=== PATIENT | female | born 1990 | race Caucasian/White ===

== ENCOUNTER 2021-05-12 14:26 | Inpatient (IN) ==
[2021-05-12] MEDS ORDERED: SODIUM CHLORIDE 0.9% 1000ML 1,000 ML IV ONE (15:10)
--- NOTE | 2021-05-12 15:15 | Emergency Department Note ---
Impression & Plan Suicide attempt by multiple drug overdose ED Provider Note Name: JEREMÍAS OSWALD Age: 31 Sex: F Arrives Via: Ambulance Informant: Patient, EMS, Nursing, parents ED Provider: Marcello Centeno MD Chief Complaint: overdose Impression: Suicide attempt by multiple drug overdose Medical Decision Makin yr old female with history of a pituatary adenoma though per her no reported mental health issues previously arrives with worsening suicidal ideation and depression. Not willing to discuss reasons for this though admits 2 suicide attempts with benzos/narcotics in last 24 hours. She is stable, awake, and appears well other than a bit sleepy initially. She has negative Etoh/Tyl/salicilates. EKG OK, No indication for CT head at this time given no neuro deficits nor headache. She has otherwise normal labs. On library monitor for several hours without issues. Repeat tylenol confirms negative. She requires hospitalization and is agreeable to voluntary admission. Evaluated by [facility] Dim[facility] and accepted to their facility for further management in stable condition. Given evening dose of her bromocriptine. Triage/Nursing Notes reviewed by Me Differentials:Mood disorder, infection, hypoglycemia, electrolyte abnorm alities, cardiac sources, intracerebral event, toxicologic, trauma, neurologic, as well as other pathologies. Vital Signs: reviewed and remarkable for no significant abnormalities Interventions: saline lock, nss bolus Labs:Reviewed and remarkable for no significant abnormalities EKG:Per My Interpretation: Indication overdose: NSR 95 bpm, 475 qtc . No Ectopy. No Ischemia. no previous for comparison Cardiac/Tele Monitoring: Cardiac Monitoring: An Order was placed for continuous cardiac monitoring. The monitor shows a rate of 70 with a normal sinus rhythm. Consults:3 Wing - Accepts for voluntary psychiatric admission Plan: Disposition:Hospitalization. Condition: Good History of Present Illness:31 yr old female arrives for evaluation of medication overdose. Patient notes worsening depression recently. Yesterday she took an overdose of her Valium/Ativan that was left over from previous rx. Today attempted to kill self with overdose of dilaudid and valium/ativan. She notes she currently feels sleepy. Apparently father found her and called 911. No interventions [employer]. She notes taking medications at 1:30pm on 05/12/21 today. Denies chest pain, sob, abdominal pain, headache, nor other symptoms. Admits long history of depression/bipolar with previous treatment, but nothing recently. No previous suicide attempts nor hospitalizations. She notes many reasons are for attempting her suicide the last 2 days. Denies taking any Tylenol/Salicylates, nor OTC medications today. ROS: See above HPI for pertinent positives & negatives. A total of 10 systems reviewed and were otherwise negative. 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 EYES: No scleral icterus, unremarkable pupils. ENT: Mucous membranes moist, no nasal congestion. NECK: No masses appreciated, nomeningismus, trachea is midline. RESPIRATORY: No dyspnea. Clear to auscultation and equal bilaterally. No wheeze, no rhonchi. CARDIOVASCULAR: Regular rate and rhythm.No murmurs, rubs, gallops appreciated. GASTROINTESTINAL: Abdomen soft, non-tender, no peritonitis.Bowel sounds positive.No masses appreciated. BACK: No midline tenderness, no CVA tenderness EXTREMITIES: Normal motion all extremities, no cyanosis, no edema. NEUROLOGIC: Alert and oriented, no acute motor or sensory deficits, no focal wea kness, cranial nerves grossly intact. SKIN: No rash, no jaundice, no diaphoresis. PSYCH: Depressed, sad, admits suicidal thoughts GCS: 15 ED Course: Times/Reassessments: Stable throughout, minimal somnolence, medically clear for psych admission Marcello Centeno MD Past Med/Surg History Social History Smoking Status: Former smoker Beliefs That Will Affect Care: None Feels Safe at Home: Yes Assistive Devices: None Allergies Allergies Allergy/AdvReac Type Severity Reaction Status Date / Time amoxicillin Allergy Intermediate Hives Verified 05/12/21 15:26 Sulfa (Sulfonamide Allergy Intermediate Hives Verified 05/12/21 15:26 Antibiotics) Home Meds Home Medications Medication Instructions Recorded Confirmed bromocriptine 2.5 mg tablet 2.5 mg PO HS 05/12/21 05/12/21 lamotrigine 100 mg tablet 200 mg PO HS 05/12/21 05/12/21 Results & Data (ED) Vital Signs Vital Signs - 24 hr 05/12/21 14:30 05/12/21 14:34 05/12/21 15:00 Temperature 37.1 C Temperature Source Oral Pulse Rate 92 H 104 H 88 Pulse Rate [Apical] 92 H Pulse Rate from SpO2 Sensor 104 H 88 Respiratory Rate 18 13 19 Respiratory Effort / Characteristics Non-Labored Spontaneous Respiratory Depth Normal Respiratory Pattern Regular Blood Pressure 125/77 125/77 110/66 Blood Pressure [Right Arm] 125/77 Blood Pressure Mean 93 93 80 Blood Pressure Mean [Right Arm] 93 Pulse Oximetry 97 98 97 Oxygen Delivery Method Room Air Sepsis Recent Fever Within 48 Hours No Sepsis New/Unexplained Change in Mental Status No Sepsis Action Taken by Nursing No Action Required 05/12/21 15:30 05/12/21 16:00 05/12/21 16:30 Temperature Temperature Source Pulse Rate 78 61 75 Pulse Rate [Apical] Pulse Rate from SpO2 Sensor 74 63 74 Respiratory Rate 16 14 15 Respiratory Effort / Characteristics Respiratory Depth Respiratory Pattern Blood Pressure 125/80 101/64 99/57 L Blood Pressure [Right Arm] Blood Pressure Mean 95 76 71 Blood Pressure Mean [Right Arm] Pulse Oximetry 96 96 97 Oxygen Delivery Method Room Air Room Air Room Air Sepsis Recent Fever Within 48 Hours Sepsis New/Unexplained Change in Mental Status Sepsis Action Taken by Nursing 05/12/21 17:00 05/12/21 17:30 05/12/21 18:00 Temperature Temperature Source Pulse Rate 73 87 91 H Pulse Rate [Apical] Pulse Rate from SpO2 Sensor 75 88 89 Respiratory Rate 17 22 17 Respiratory Effort / Characteristics Respiratory Depth Respiratory Pattern Blood Pressure 99/55 L 108/73 114/77 Blood Pressure [Right Arm] Blood Pressure Mean 69 84 89 Blood Pressure Mean [Right Arm] Pulse Oximetry 95 97 97 Oxygen Delivery Method Room Air Room Air Room Air Sepsis Recent Fever Within 48 Hours Sepsis New/Unexplained Change in Mental Status Sepsis Action Taken by Nursing 05/12/21 18:30 05/12/21 19:00 05/12/21 19:30 Temperature Temperature Source Pulse Rate 67 68 60 Pulse Rate [Apical] Pulse Rate from SpO2 Sensor 72 62 Respiratory Rate 20 12 13 Respiratory Effort / Characteristics Respiratory Depth Respiratory Pattern Blood Pressure 121/75 98/65 L 111/65 Blood Pressure [Right Arm] Blood Pressure Mean 90 76 80 Blood Pressure Mean [Right Arm] Pulse Oximetry 98 100 100 Oxygen Delivery Method Room Air Room Air Room Air Sepsis Recent Fever Within 48 Hours Sepsis New/Unexplained Change in Mental Status Sepsis Action Taken by Nursing 05/12/21 20:00 05/12/21 20:30 05/12/21 21:00 Temperature Temperature Source Pulse Rate 67 71 79 Pulse Rate [Apical] Pulse Rate from SpO2 Sensor 69 70 78 Respiratory Rate 18 16 17 Respiratory Effort / Characteristics Respiratory Depth Respiratory Pattern Blood Pressure 119/74 105/66 123/73 Blood Pressure [Right Arm] Blood Pressure Mean 89 79 89 Blood Pressure Mean [Right Arm] Pulse Oximetry 98 98 100 Oxygen Delivery Method Room Air Room Air Room Air Sepsis Recent Fever Within 48 Hours Sepsis New/Unexplained Change in Mental Status Sepsis Action Taken by Nursing Laboratory Data Result diagrams: 05/12/21 15:40 05/12/21 15:40 Lab Results 05/12/21 05/12/21 05/12/21 Range/Units 15:30 15:30 15:40 WBC 4.94 (4.8-10.8) K/uL RBC 3.97 L (4.2-5.4) M/uL Hgb 12.0 (12.0-16.0) g/dL Hct 36.6 L (37-47) % MCV 92.2 (80-100) fL MCH 30.2 (25-34) pg MCHC 32.8 (32-36) g/dL RDW Std Deviation 42.8 (36.4-46.3) fL RDW Coeff of Shukri 12.6 (11.5-14.5) % Plt Count 268 (130-400) K/uL MPV 9.9 (7.4-10.4) fL Immature Gran % (Auto) 0.0 % Neut % (Auto) 55.5 % Lymph % (Auto) 35.6 % Er[place] % (Auto) 7.7 % Eos % (Auto) 0.4 % Baso % (Auto) 0.8 % Neut # (Auto) 2.74 (1.4-6.5) K/uL Lymph # (Auto) 1.76 (1.2-3.4) K/uL [place] # (Auto) 0.38 (0.11-0.59) K/uL Eos # (Auto) 0.02 (0-0.5) K/uL Baso # (Auto) 0.04 (0-0.2) K/uL Immature Gran # (Auto) 0.00 (0.00-0.02) K/uL Sodium (136-145) mmol/L Potassium (3.5-5.1) mmol/L Chloride (98-107) mmol/L Carbon Dioxide (21-32) mmol/L Anion Gap (3-11) BUN (7-18) mg/dl Creatinine (0.6-1.2) mg/dl Est Cr Clr Drug Dosing ml/min Est GFR ( Amer) ml/min Est GFR (Non-Af Amer) ml/min BUN/Creatinine Ratio (10-20) Glucose (70-99) mg/dl Calcium (8.5-10.1) mg/dl Total Bilirubin (0.2-1) mg/dl AST (15-37) U/L ALT (12-78) U/L Alkaline Phosphatase (45-117) U/L Total Protein (6.4-8.2) gm/dl Albumin (3.4-5.0) gm/dl Globulin (2.5-4.0) gm/dl Albumin/Globulin Ratio (0.9-2) TSH (0.300-4.500) uIu/ml Urine Color Urine Appearance (Clear) Urine pH (4.5-7.5) Ur Specific Lawrence (1.000-1.030) Urine Protein (Negative) Urine Glucose (UA) (Negative) Urine Ketones (Negative) Urine Blood (Negative) Urine Nitrite (Negative) Urine Bilirubin (Negative) Urine Urobilinogen (Negative) Ur Leukocyte Esterase (Negative) Urine WBC (Auto) (0-5) /hpf Urine RBC (Auto) (0-4) /hpf U Hyaline Cast (Auto) (0-5) /lpf U Epithel Cells (Auto) (0-5) /lpf Urine Bacteria (Auto) (Negative) Urine Test (Negative) Salicylates (2.8-20) mg/dl Urine Opiates Screen (Neg) Ur Methadone, Qual (Neg) Acetaminophen (10-30) ug/ml Urine Barbiturates (Neg) Ur Phencyclidine (PCP) (Neg) U Amphetamin/Meth Scrn (Neg) MDMA (Ecstasy) Screen (Neg) U Benzodiazepines Scrn (Neg) Ur Cocaine Metabolite (Neg) U Marijuana (THC) Screen (Neg) Ethyl Alcohol mg/dL (0-3) mg/dl COVID-19 Eval Order Covid19 at [facility] SARS-CoV-2 (PCR) NEGATIVE (Negative) 05/12/21 05/12/21 05/12/21 Range/Units 15:40 15:40 15:40 WBC (4.8-10.8) K/uL RBC (4.2-5.4) M/uL Hgb (12.0-16.0) g/dL Hct (37-47) % MCV (80-100) fL MCH (25-34) pg MCHC (32-36) g/dL RDW Std Deviation (36.4-46.3) fL RDW Coeff of Shukri (11.5-14.5) % Plt Count (130-400) K/uL MPV (7.4-10.4) fL Immature Gran % (Auto) % Neut % (Auto) % Lymph % (Auto) % [place] % (Auto) % Eos % (Auto) % Baso % (Auto) % Neut # (Auto) (1.4-6.5) K/uL Lymph # (Auto) (1.2-3.4) K/uL [place] # (Auto) (0.11-0.59) K/uL Eos # (Auto) (0-0.5) K/uL Baso # (Auto) (0-0.2) K/uL Immature Gran # (Auto) (0.00-0.02) K/uL Sodium 141 (136-145) mmol/L Potassium 4.3 (3.5-5.1) mmol/L Chloride 113 H (98-107) mmol/L Carbon Dioxide 24 (21-32) mmol/L Anion Gap 4.0 (3-11) BUN 11 (7-18) mg/dl Creatinine 0.73 (0.6-1.2) mg/dl Est Cr Clr Drug Dosing 107.6 ml/min Est GFR ( Amer) 126.3 ml/min Est GFR (Non-Af Amer) 109.0 ml/min BUN/Creatinine Ratio 14.8 (10-20) Glucose 80 (70-99) mg/dl Calcium 8.0 L (8.5-10.1) mg/dl Total Bilirubin 0.7 (0.2-1) mg/dl AST 12 L (15-37) U/L ALT 21 (12-78) U/L Alkaline Phosphatase 31 L (45-117) U/L Total Protein 6.6 (6.4-8.2) gm/dl Albumin 3.7 (3.4-5.0) gm/dl Globulin 2.9 (2.5-4.0) gm/dl Albumin/Globulin Ratio 1.3 (0.9-2) TSH 4.300 (0.300-4.500) uIu/ml Urine Color Urine Appearance (Clear) Urine pH (4.5-7.5) Ur Specific Lawrence (1.000-1.030) Urine Protein (Negative) Urine Glucose (UA) (Negative) Urine Ketones (Negative) Urine Blood (Negative) Urine Nitrite (Negative) Urine Bilirubin (Negative) Urine Urobilinogen (Negative) Ur Leukocyte Esterase (Negative) Urine WBC (Auto) (0-5) /hpf Urine RBC (Auto) (0-4) /hpf U Hyaline Cast (Auto) (0-5) /lpf U Epithel Cells (Auto) (0-5) /lpf Urine Bacteria (Auto) (Negative) Urine Test (Negative) Salicylates < 1.7 L (2.8-20) mg/dl Urine Opiates Screen (Neg) Ur Methadone, Qual (Neg) Acetaminophen < 2 L (10-30) ug/ml Urine Barbiturates (Neg) Ur Phencyclidine (PCP) (Neg) U Amphetamin/Meth Scrn (Neg) MDMA (Ecstasy) Screen (Neg) U Benzodiazepines Scrn (Neg) Ur Cocaine Metabolite (Neg) U Marijuana (THC) Screen (Neg) Ethyl Alcohol mg/dL < 3.0 (0-3) mg/dl COVID-19 Eval Order SARS-CoV-2 (PCR) (Negative) 05/12/21 05/12/21 05/12/21 Range/Units 17:37 18:26 18:26 WBC (4.8-10.8) K/uL RBC (4.2-5.4) M/uL Hgb (12.0-16.0) g/dL Hct (37-47) % MCV (80-100) fL MCH (25-34) pg MCHC (32-36) g/dL RDW Std Deviation (36.4-46.3) fL RDW Coeff of Shukri (11.5-14.5) % Plt Count (130-400) K/uL MPV (7.4-10.4) fL Immature Gran % (Auto) % Neut % (Auto) % Lymph % (Auto) % [place] % (Auto) % Eos % (Auto) % Baso % (Auto) % Neut # (Auto) (1.4-6.5) K/uL Lymph # (Auto) (1.2-3.4) K/uL [place] # (Auto) (0.11-0.59) K/uL Eos # (Auto) (0-0.5) K/uL Baso # (Auto) (0-0.2) K/uL Immature Gran # (Auto) (0.00-0.02) K/uL Sodium (136-145) mmol/L Potassium (3.5-5.1) mmol/L Chloride (98-107) mmol/L Carbon Dioxide (21-32) mmol/L Anion Gap (3-11) BUN (7-18) mg/dl Creatinine (0.6-1.2) mg/dl Est Cr Clr Drug Dosing ml/min Est GFR ( Amer) ml/min Est GFR (Non-Af Amer) ml/min BUN/Creatinine Ratio (10-20) Glucose (70-99) mg/dl Calcium (8.5-10.1) mg/dl Total Bilirubin (0.2-1) mg/dl AST (15-37) U/L ALT (12-78) U/L Alkaline Phosphatase (45-117) U/L Total Protein (6.4-8.2) gm/dl Albumin (3.4-5.0) gm/dl Globulin (2.5-4.0) gm/dl Albumin/Globulin Ratio (0.9-2) TSH (0.300-4.500) uIu/ml Urine Color Yellow Urine Appearance Clear (Clear) Urine pH 6.5 (4.5-7.5) Ur Specific Lawrence 1.009 (1.000-1.030) Urine Protein Negative (Negative) Urine Glucose (UA) Negative (Negative) Urine Ketones 1+ H (Negative) Urine Blood Trace H (Negative) Urine Nitrite Negative (Negative) Urine Bilirubin Negative (Negative) Urine Urobilinogen Negative (Negative) Ur Leukocyte Esterase Negative (Negative) Urine WBC (Auto) 1-5 (0-5) /hpf Urine RBC (Auto) 0-4 (0-4) /hpf U Hyaline Cast (Auto) 0 (0-5) /lpf U Epithel Cells (Auto) >30 H (0-5) /lpf Urine Bacteria (Auto) Negative (Negative) Urine Test Negative (Negative) Salicylates (2.8-20) mg/dl Urine Opiates Screen (Neg) Ur Methadone, Qual (Neg) Acetaminophen < 2 L (10-30) ug/ml Urine Barbiturates (Neg) Ur Phencyclidine (PCP) (Neg) U Amphetamin/Meth Scrn (Neg) MDMA (Ecstasy) Screen (Neg) U Benzodiazepines Scrn (Neg) Ur Cocaine Metabolite (Neg) U Marijuana (THC) Screen (Neg) Ethyl Alcohol mg/dL (0-3) mg/dl COVID-19 Eval Order SARS-CoV-2 (PCR) (Negative) 05/12/21 Range/Units 18:26 WBC (4.8-10.8) K/uL RBC (4.2-5.4) M/uL Hgb (12.0-16.0) g/dL Hct (37-47) % MCV (80-100) fL MCH (25-34) pg MCHC (32-36) g/dL RDW Std Deviation (36.4-46.3) fL RDW Coeff of Shukri (11.5-14.5) % Plt Count (130-400) K/uL MPV (7.4-10.4) fL Immature Gran % (Auto) % Neut % (Auto) % Lymph % (Auto) % [place] % (Auto) % Eos % (Auto) % Baso % (Auto) % Neut # (Auto) (1.4-6.5) K/uL Lymph # (Auto) (1.2-3.4) K/uL [place] # (Auto) (0.11-0.59) K/uL Eos # (Auto) (0-0.5) K/uL Baso # (Auto) (0-0.2) K/uL Immature Gran # (Auto) (0.00-0.02) K/uL Sodium (136-145) mmol/L Potassium (3.5-5.1) mmol/L Chloride (98-107) mmol/L Carbon Dioxide (21-32) mmol/L Anion Gap (3-11) BUN (7-18) mg/dl Creatinine (0.6-1.2) mg/dl Est Cr Clr Drug Dosing ml/min Est GFR ( Amer) ml/min Est GFR (Non-Af Amer) ml/min BUN/Creatinine Ratio (10-20) Glucose (70-99) mg/dl Calcium (8.5-10.1) mg/dl Total Bilirubin (0.2-1) mg/dl AST (15-37) U/L ALT (12-78) U/L Alkaline Phosphatase (45-117) U/L Total Protein (6.4-8.2) gm/dl Albumin (3.4-5.0) gm/dl Globulin (2.5-4.0) gm/dl Albumin/Globulin Ratio (0.9-2) TSH (0.300-4.500) uIu/ml Urine Color Urine Appearance (Clear) Urine pH (4.5-7.5) Ur Specific Lawrence (1.000-1.030) Urine Protein (Negative) Urine Glucose (UA) (Negative) Urine Ketones (Negative) Urine Blood (Negative) Urine Nitrite (Negative) Urine Bilirubin (Negative) Urine Urobilinogen (Negative) Ur Leukocyte Esterase (Negative) Urine WBC (Auto) (0-5) /hpf Urine RBC (Auto) (0-4) /hpf U Hyaline Cast (Auto) (0-5) /lpf U Epithel Cells (Auto) (0-5) /lpf Urine Bacteria (Auto) (Negative) Urine Test (Negative) Salicylates (2.8-20) mg/dl Urine Opiates Screen Pos H (Neg) Ur Methadone, Qual Neg (Neg) Acetaminophen (10-30) ug/ml Urine Barbiturates Neg (Neg) Ur Phencyclidine (PCP) Neg (Neg) U Amphetamin/Meth Scrn Neg (Neg) MDMA (Ecstasy) Screen Neg (Neg) U Benzodiazepines Scrn Pos H (Neg) Ur Cocaine Metabolite Neg (Neg) U Marijuana (THC) Screen Neg (Neg) Ethyl Alcohol mg/dL (0-3) mg/dl COVID-19 Eval Order SARS-CoV-2 (PCR) (Negative) Administered Medications Discontinued Medications Bromocriptine Mesylate (Bromocriptine Mesylate 2.5 Mg Tab) 2.5 mg PO BID HARJEET Stop: 06/11/21 21:29 Last Admin: 05/12/21 21:59 Dose: 2.5 mg Documented by: [id number] Sodium Chloride (Nss 1000ml) 1,000 mls @ 999 mls/hr IV .[id number] ONE Stop: 05/12/21 16:10 Last Infusion: 05/12/21 16:26 Dose: 0 mls/hr Documented by: [id number] Admin: 05/12/21 15:26 Dose: 999 mls/hr Documented by: [id number] Discharge Plan Visit Data Chief Complaint: Overdose (Intentional) Stated Complaint: OVERDOSE ED Provider: Marcello Centeno Discharge Problem: Suicide attempt by multiple drug overdose Patient Disposition: Admitted As Inpatient Discharge Instructions Interventions: ED Discharge Assessment Last Done: 05/12/21 22:19 Discharge Problem: Suicide attempt by multiple drug overdose Qualifiers: Encounter type: initial encounter Qualified Code(s): T50.912A - Poisoning by multiple unspecified drugs, medicaments and biological substances, intentional self-harm, initial encounter
[2021-05-12 15:52] LABS: Basophils # (auto) 0.04 K/uL (0-0.2); Basophils % (auto) 0.8 %; Eosinophils # (auto) 0.02 K/uL (0-0.5); Eosinophils % (auto) 0.4 %; Hematocrit (blood only) 36.6 % (37-47); Lymphocytes # (auto) 1.76 K/uL (1.2-3.4); Lymphocytes % (auto) 35.6 %; Mean Corpuscular Hemoglobin 30.2 pg (25-34); Mean Corpuscular Hgb Conc 32.8 g/dL (32-36); Mean Corpuscular Volume 92.2 fL (80-100); Mean Platelet Volume 9.9 fL (7.4-10.4); Monocytes # (auto) 0.38 K/uL (0.11-0.59); Monocytes % (auto) 7.7 %; Neutrophils # (auto) 2.74 K/uL (1.4-6.5); Neutrophils % (auto) 55.5 %; Platelet Count 268 K/uL (130-400); RDW Coefficient of Variation 12.6 % (11.5-14.5); RDW Standard Deviation 42.8 fL (36.4-46.3); Red Blood Count 3.97 M/uL (4.2-5.4); White Blood Count 4.94 K/uL (4.8-10.8)
[2021-05-12 16:10] LABS: Albumin Level 3.7 gm/dl (3.4-5.0); BUN Creatinine Ratio 14.8 (10-20); Creatinine Clr Calc Pharmacy 107.6 ml/min; Est GFR (African American) 126.3 ml/min; Potassium 4.3 mmol/L (3.5-5.1)
[2021-05-12 16:12] LABS: Acetaminophen < 2 ug/ml (10-30); Salicylate < 1.7 mg/dl (2.8-20)
[2021-05-12 16:21] LABS: Albumin Globulin Ratio 1.3 (0.9-2); Bilirubin,Total 0.7 mg/dl (0.2-1); Globulin 2.9 gm/dl (2.5-4.0); Thyroid Stimulating Hormone 4.3 uIu/ml (0.300-4.500); Total Protein 6.6 gm/dl (6.4-8.2)
[2021-05-12 18:53] LABS: Appearance Urine Clear (Clear); Bacteria Urine Automated Negative (Negative); Bilirubin Urine Negative (Negative); Blood Urine Trace (Negative); Cast Urine Automated 0 /lpf (0-5); Color Urine Yellow; Epithelial Cell Urine Auto >30 /lpf (0-5); Glucose Urine UA Negative (Negative); Ketones Urine 1+ (Negative); Leukocyte Esterase Urine Negative (Negative); Nitrite Urine Negative (Negative); Pregnancy Test, Urine Negative (Negative); Protein Urine Negative (Negative); RBC Urine Automated 0-4 /hpf (0-4); Specific Gravity Urine 1.009 (1.000-1.030); Urobilinogen Urine Negative (Negative); pH Urine 6.5 (4.5-7.5)
[2021-05-12 19:13] LABS: Amphetamines+Metham, Urine Neg (Neg); Barbiturates, Urine Neg (Neg); Benzodiazepine, Urine Pos (Neg); Cocaine, Urine Neg (Neg); MDMA (Ecstacy), Urine Neg (Neg); Methadone, Urine Neg (Neg); Opiate, Urine Pos (Neg); Phencyclidine, Urine Neg (Neg)
[2021-05-12] MEDS ORDERED: MAGNESIUM HYDROXIDE SUSP 30 ML UDC PO PRN (21:29)
[2021-05-12] MEDS ORDERED: ALUMINUM/MAGNESIUM SUSP 30 ML UDC PO PRN (21:29)
[2021-05-12] MEDS ORDERED: SODIUM CHLORIDE 0.65% NA SOLN 45 ML (OCEAN) PRN (21:29)
[2021-05-12] MEDS ORDERED: ACETAMINOPHEN 325 MG TAB PO PRN (21:29)
[2021-05-12] MEDS ORDERED: hydrOXYzine HCl 25 MG TAB PO PRN ×2 (21:29)
[2021-05-12] MEDS ORDERED: BISMUTH SUBSALICYLATE LIQD 236 ML PO PRN (21:29)
[2021-05-12] MEDS ORDERED: BROMOCRIPTINE MESYLATE 2.5 MG TAB PO SCH (21:30)
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
--- NOTE | 2021-05-13 11:25 | Electrocardiogram Report ---
Test Reason : Blood Pressure : / mmHG Vent. Rate : 095 BPM Atrial Rate : 095 BPM P-R Int : 134 ms QRS Dur : 084 ms QT Int : 378 ms P-R-T Axes : 073 077 070 degrees QTc Int : 475 ms Normal sinus rhythm Possible Left atrial enlargement Nonspecific ST abnormality Abnormal ECG No previous ECGs available Confirmed by Mejia Bartlett ([id number]) on 05/13/2021 11:25:15 AM Referred By: REFERRED SELF Confirmed By:Mejia Bartlett
[2021-05-13] MEDS: BROMOCRIPTINE MESYLATE 2.5 MG TAB PO SCH (20:24)
--- NOTE | 2021-05-14 16:15 | Psychiatric Progress Note ---
Date of Service May 14, 2021 Impression / Recommendations Impression 31 yo female with a history of recurrent depressive episodes, good inter episode functioning and brief periods of hypomania presents with vegetative symptoms of depression s/p multi drug OD. She reports hx of pituitary adenoma (stable though last MRI 5 years, she relates nl prl recently and no visual field issues). 05/14/21--improving (1) Bipolar II disorder with seasonal pattern: 05/14/21: restart Lamictal 05/13/21: The patient was admitted to the [facility] (health system mental health unit) on q15 min checks (behavioral with suicide precautions) for safety. The patient will participate in group, recreational, and milieu therapies and will be offered additional individual and family sessions as clinically appropriate. Risks/benefits/alternatives were reviewed re: retrial of Lamictal, discussion included but was not limited to risks for Douglas kearns. She desires additional time to consider. 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 Chief Complaint "the work stuff is a relief, just trying to decide how much support I want when I leave the hospital". Review of Systems Sleep Information Total Hours of Sleep: 6.5 Meal Information Percent Meal Consumed - Breakfast: 50 Percent Meal Consumed - Lunch: 75 Percent Meal Consumed - Dinner: 75 Subjective Subjective Patient was seen & assessed and interval progress reviewed with nursing and social work. No issue overnight other than light sleeper. Appears brighter in peer interactions. Was able to discuss her past med trials. Awaiting family meeting. Physical Exam Psychiatric Orientation: alert and oriented x 3 Apperance: appropriately dressed and appropriately groomed Eye Contact: good eye contact Motor Behavior: no abnormal motor movements Speech: normal rate/rhythm/volume of speech Affect: euthymic affect Mood: + depressed mood Thought Process: goal directed thought process Thought Content: reality based without delusions Suicidal Thoughts: denies suicidal thoughts Homicidal Thoughts: denies homicidal thoughts Hallucinations: no auditory hallucinations and no visual hallucinations Cognition: attention grossly intact and language grossly intact Estimated Intelligence: consistent with education level Insight: + limited insight Judgement: + limited judgement Vital Signs (Past 24 Hours) Last Vital Signs Temp 36.6 C 05/14/21 06:50 Pulse 72 05/14/21 06:50 Resp 16 05/14/21 06:50 BP 87/51 L 05/14/21 06:50 Pulse Ox 99 05/12/21 21:30 Results & Data ([facility]) Current Inpatient Medications Current Inpatient Medications: Current Inpatient Medications Acetaminophen (Acetaminophen 325 Mg Tab) 650 mg PO Q4H PRN PRN Reason: Headache or Minor Fever Stop: 06/11/21 21:28 Al Hydrox/Mg Hydrox/Simethicone (Aluminum/Magnesium Susp 30 Ml Udc) 30 ml PO Q4H PRN PRN Reason: GI Upset Stop: 06/11/21 21:28 Bismuth Subsalicylate (Bismuth Subsalicylate Liqd 236 Ml) 15 ml PO PRN PRN PRN Reason: Loose Stool Stop: 06/11/21 21:28 Bromocriptine Mesylate (Bromocriptine Mesylate 2.5 Mg Tab) 2.5 mg PO QPM HARJEET Stop: 06/12/21 20:59 Last Admin: 05/13/21 20:24 Dose: 2.5 mg Documented by: Hydroxyzine HCl (Hydroxyzine Hcl 25 Mg Tab) 50 mg PO HSZ PRN PRN Reason: Insomnia Stop: 06/11/21 21:28 Hydroxyzine HCl (Hydroxyzine Hcl 25 Mg Tab) 25 mg PO Q4H PRN PRN Reason: Anxiety Stop: 06/11/21 21:28 Magnesium Hydroxide (Magnesium Hydroxide Susp 30 Ml Udc) 30 ml PO DAILY PRN PRN Reason: Constipation Stop: 06/11/21 21:28 Sodium Chloride (Sodium Chloride 0.65% Na Soln 45 Ml ([place])) 1 - 2 sprays NA PRN PRN PRN Reason: Nasal Dryness/Congestion Stop: 06/11/21 21:28
[2021-05-14] MEDS: lamoTRIgine 25 MG TAB PO SCH (17:10)
[2021-05-14] MEDS: BROMOCRIPTINE MESYLATE 2.5 MG TAB PO SCH (21:04)
[2021-05-15] MEDS: lamoTRIgine 25 MG TAB PO SCH (08:29)
--- NOTE | 2021-05-15 09:11 | Psychiatric Progress Note ---
Date of Service May 15, 2021 Impression / Recommendations Impression 31 yo female with a history of recurrent depressive episodes, good inter episode functioning and brief periods of hypomania presents with vegetative symptoms of depression s/p multi drug OD. She reports hx of pituitary adenoma (stable though last MRI 5 years, she relates nl prl recently and no visual field issues). 05/15/21--improving (1) Bipolar II disorder with seasonal pattern: 05/15/21: continue current medication and treatment plan 05/14/21: restart Lamictal 05/13/21: The patient was admitted to the [facility] ([facility] mental health unit) on q15 min checks (behavioral with suicide precautions) for safety. The patient will participate in group, recreational, and milieu therapies and will be offered additional individual and family sessions as clinically appropriate. Risks/benefits/alternatives were reviewed re: retrial of Lamictal, discussion included but was not limited to risks for Douglas kearns. She desires additional time to consider. 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 Chief Complaint "yeah, just focussed on how this all will work, I guess I am feeling better". Review of Systems Sleep Information Total Hours of Sleep: 6.5 Sleep Comments: pt on q-15 minute checks Meal Information Percent Meal Consumed - Breakfast: 50 Percent Meal Consumed - Lunch: 75 Percent Meal Consumed - Dinner: 90 Subjective Subjective Patient was seen & assessed and interval progress reviewed with treatment team. Patient relates sleep is improving. Tolerating restart of Lamictal. Parents were supportive in family meeting. She remains focussed on hormone levels being the underlying cause of many of her symptoms and re-reviewed her medical clearance labs. Physical Exam Psychiatric Orientation: alert and oriented x 3 Apperance: appropriately dressed and appropriately groomed Eye Contact: good eye contact Motor Behavior: no abnormal motor movements Speech: normal rate/rhythm/volume of speech Affect: euthymic affect Mood: + depressed mood Thought Process: goal directed thought process Thought Content: reality based without delusions Suicidal Thoughts: denies suicidal thoughts Homicidal Thoughts: denies homicidal thoughts Hallucinations: no auditory hallucinations and no visual hallucinations Cognition: attention grossly intact and language grossly intact Estimated Intelligence: consistent with education level Insight: + fair insight Judgement: + fair judgement Vital Signs (Past 24 Hours) Last Vital Signs Temp 36.5 C 05/15/21 06:39 Pulse 74 05/15/21 06:40 Resp 16 05/15/21 06:39 BP 83/57 L 05/15/21 06:40 Pulse Ox 99 05/12/21 21:30 Results & Data ([facility]) Current Inpatient Medications Current Inpatient Medications: Current Inpatient Medications Acetaminophen (Acetaminophen 325 Mg Tab) 650 mg PO Q4H PRN PRN Reason: Headache or Minor Fever Stop: 06/11/21 21:28 Al Hydrox/Mg Hydrox/Simethicone (Aluminum/Magnesium Susp 30 Ml Udc) 30 ml PO Q4H PRN PRN Reason: GI Upset Stop: 06/11/21 21:28 Bismuth Subsalicylate (Bismuth Subsalicylate Liqd 236 Ml) 15 ml PO PRN PRN PRN Reason: Loose Stool Stop: 06/11/21 21:28 Bromocriptine Mesylate (Bromocriptine Mesylate 2.5 Mg Tab) 2.5 mg PO QPM HARJEET Stop: 06/12/21 20:59 Last Admin: 05/14/21 21:04 Dose: 2.5 mg Documented by: Hydroxyzine HCl (Hydroxyzine Hcl 25 Mg Tab) 50 mg PO HSZ PRN PRN Reason: Insomnia Stop: 06/11/21 21:28 Hydroxyzine HCl (Hydroxyzine Hcl 25 Mg Tab) 25 mg PO Q4H PRN PRN Reason: Anxiety Stop: 06/11/21 21:28 Lamotrigine (Lamotrigine 25 Mg Tab) 25 mg PO QAM HARJEET Stop: 06/13/21 16:29 Last Admin: 05/15/21 08:29 Dose: 25 mg Documented by: Magnesium Hydroxide (Magnesium Hydroxide Susp 30 Ml Udc) 30 ml PO DAILY PRN PRN Reason: Constipation Stop: 06/11/21 21:28 Sodium Chloride (Sodium Chloride 0.65% Na Soln 45 Ml ([place])) 1 - 2 sprays NA PRN PRN PRN Reason: Nasal Dryness/Congestion Stop: 06/11/21 21:28
[2021-05-15 12:25] LABS: 7-Aminoclonaz, Confirm NEGATIVE ng/mL (<25); Codeine Urine NEGATIVE ng/mL (<50); Hydro-Alp Ur, GC/MS NEGATIVE ng/mL (<25); Hydrocodone Urine NEGATIVE ng/mL (<50); Hydromor Urine 5570 ng/mL (<50); Hydroxyethylflurazepam, Conf NEGATIVE ng/mL (<50); Hydroxymidazolam Ur, GC/MS NEGATIVE ng/mL (<50); Hydroxytriazolam NEGATIVE ng/mL (<50); Lorazepam, Ur GC/MS 247 ng/mL (<50); Morphine Urine NEGATIVE ng/mL (<50); Nordiazepam, Confirm 382 ng/mL (<50); Norhydrocodone Conf Ur NEGATIVE ng/mL (<50); Noroxycodone Urine NEGATIVE ng/mL (<50); Oxazepam Ur, GC/MS NEGATIVE ng/mL (<50); Oxycodone Urine NEGATIVE ng/mL (<50); Oxymorph Urine NEGATIVE ng/mL (<50); Temazepam, Confirm 222 ng/mL (<50)
[2021-05-15] MEDS: BROMOCRIPTINE MESYLATE 2.5 MG TAB PO SCH (20:02)
[2021-05-16] MEDS: lamoTRIgine 25 MG TAB PO SCH (08:59)
--- NOTE | 2021-05-16 09:50 | Discharge Summary ---
Date of Service May 16, 2021 History of Present Illness Patient reports sporadic mental health treatment since the abrupt closure of Dr. Hanson's office in 2019. In general, her mood improved with the pandemic as she was able to work remotely, road trip to see friends and she doesn't mind living alone per se. 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 She feels that most of her friends are now spread about the country and partnered adding "I know I'll never be in a relationship". She sold her home during the pandemic as well and over the course of the summer she has been off of lamictal (a med she identifies as a longstanding helpful prescription) and feeling more fatigued, gaining weight despite little appetite, etc. She withdrew from family about 3-4 days ago. Two days prior to admission she took an Ativan for a panic attack and then the following day she woke up and wanted to end her life so she took some medication left over from surgery last year, likely Dilaudid and up to 6 mg total of Valium. She reports her parents came to check on her as she wasn't responding to their texts and when father found her at the apartment he called 911. She did not expect to be admitted to the hospital and remains ambivalent re: her stay as maintains the belief that it will interfere with her job or future job seeking. Physical Exam Mental Examination See admission H&P and DOD summary. Vital Signs (Past 24 Hours) Last Vital Signs Temp 36.6 C 05/16/21 06:00 Pulse 61 05/16/21 06:40 Resp 16 05/16/21 06:00 BP 96/62 L 05/16/21 06:40 Pulse Ox 99 05/12/21 21:30 Principal Diagnosis bipolar II disorder Psychiatric Data See daily stay summary. In short, safety was maintained and the patient was cooperative with care. Medication changes included restart of Lamictal and they tolerated this well. A family session was held with parents and safety plan was completed prior to discharge. Day of Discharge Assessment Today the patient voices readiness for discharge. They note improvement in mood and deny thoughts to harm self or others. Thoughts remain organized and they are improved from admission. There is no evidence of psychosis. They agree to take mediations as prescribed and keep follow-up appointments. They are stable for discharge to outpatient level of care. 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 Risk Factors Assessment : Yes Do You Have Access To A Gun?: No Health Problems: Yes Mental Health Diagnoses: Yes Substance Use Disorders: No Previous Attempt: No Family History of Suicide: No Protective Factors Assessment Employed: Yes ([employer]) Supportive Family: Yes Tobacco Cessation at Discharge Tobacco Cessation Medication Prescribed at Discharge: Not Applicable/Non-Smoker Total Time Total Time Spent: Greater Than 30 Minutes Total Time Includes: Examination of the patient, Discharge Planning and Medication Reconciliation Discharge Data Lab Results 05/12/21 05/12/21 05/12/21 15:30 15:30 15:40 WBC 4.94 RBC 3.97 L Hgb 12.0 Hct 36.6 L MCV 92.2 MCH 30.2 MCHC 32.8 RDW Std Deviation 42.8 RDW Coeff of Shukri 12.6 Plt Count 268 MPV 9.9 Immature Gran % (Auto) 0.0 Neut % (Auto) 55.5 Lymph % (Auto) 35.6 [place] % (Auto) 7.7 Eos % (Auto) 0.4 Baso % (Auto) 0.8 Neut # (Auto) 2.74 Lymph # (Auto) 1.76 [place] # (Auto) 0.38 Eos # (Auto) 0.02 Baso # (Auto) 0.04 Immature Gran # (Auto) 0.00 Sodium Potassium Chloride Carbon Dioxide Anion Gap BUN Creatinine Est Cr Clr Drug Dosing Est GFR ( Amer) Est GFR (Non-Af Amer) BUN/Creatinine Ratio Glucose Calcium Total Bilirubin AST ALT Alkaline Phosphatase Total Protein Albumin Globulin Albumin/Globulin Ratio TSH Urine Color Urine Appearance Urine pH Ur Specific [place] Urine Protein Urine Glucose (UA) Urine Ketones Urine Blood Urine Nitrite Urine Bilirubin Urine Urobilinogen Ur Leukocyte Esterase Urine WBC (Auto) Urine RBC (Auto) U Hyaline Cast (Auto) U Epithel Cells (Auto) Urine Bacteria (Auto) Urine Test Salicylates Urine Opiates Screen U Codeine Confrm GC/MS Ur Morphine (GC/MS) Ur Hydrocodone (GC/MS) Ur Norhydrocodone Ur Noroxycodone Urine Oxycodone (GC/MS) U Oxymorphone GC/MS Ur Methadone, Qual Ur Hydromorphone (GC/MS) Acetaminophen Urine Barbiturates Ur Phencyclidine (PCP) U Amphetamin/Meth Scrn MDMA (Ecstasy) Screen U OH-Alprazolam Confrm U Benzodiazepines Scrn 7-Amino Clonazepam Ur Nordiazepam Confirm U OH-ethylflurazepam U Lorazepam Cnf GC/MS U Oxazepam Confm GC/MS Ur Temazepam Confirm U OH-Triazolam Confirm U OH-Midazolam Confirm Ur Cocaine Metabolite U Marijuana (THC) Screen Drug Screen Comment Ethyl Alcohol mg/dL COVID-19 Eval Order Covid19 at [facility] SARS-CoV-2 (PCR) NEGATIVE 05/12/21 05/12/21 05/12/21 15:40 15:40 15:40 WBC RBC Hgb Hct MCV MCH MCHC RDW Std Deviation RDW Coeff of Shukri Plt Count MPV Immature Gran % (Auto) Neut % (Auto) Lymph % (Auto) [place] % (Auto) Eos % (Auto) Baso % (Auto) Neut # (Auto) Lymph # (Auto) [place] # (Auto) Eos # (Auto) Baso # (Auto) Immature Gran # (Auto) Sodium 141 Potassium 4.3 Chloride 113 H Carbon Dioxide 24 Anion Gap 4.0 BUN 11 Creatinine 0.73 Est Cr Clr Drug Dosing 107.6 Est GFR ( Amer) 126.3 Est GFR (Non-Af Amer) 109.0 BUN/Creatinine Ratio 14.8 Glucose 80 Calcium 8.0 L Total Bilirubin 0.7 AST 12 L ALT 21 Alkaline Phosphatase 31 L Total Protein 6.6 Albumin 3.7 Globulin 2.9 Albumin/Globulin Ratio 1.3 TSH 4.300 Urine Color Urine Appearance Urine pH Ur Specific [place] Urine Protein Urine Glucose (UA) Urine Ketones Urine Blood Urine Nitrite Urine Bilirubin Urine Urobilinogen Ur Leukocyte Esterase Urine WBC (Auto) Urine RBC (Auto) U Hyaline Cast (Auto) U Epithel Cells (Auto) Urine Bacteria (Auto) Urine Test Salicylates < 1.7 L Urine Opiates Screen U Codeine Confrm GC/MS Ur Morphine (GC/MS) Ur Hydrocodone (GC/MS) Ur Norhydrocodone Ur Noroxycodone Urine Oxycodone (GC/MS) U Oxymorphone GC/MS Ur Methadone, Qual Ur Hydromorphone (GC/MS) Acetaminophen < 2 L Urine Barbiturates Ur Phencyclidine (PCP) U Amphetamin/Meth Scrn MDMA (Ecstasy) Screen U OH-Alprazolam Confrm U Benzodiazepines Scrn 7-Amino Clonazepam Ur Nordiazepam Confirm U OH-ethylflurazepam U Lorazepam Cnf GC/MS U Oxazepam Confm GC/MS Ur Temazepam Confirm U OH-Triazolam Confirm U OH-Midazolam Confirm Ur Cocaine Metabolite U Marijuana (THC) Screen Drug Screen Comment Ethyl Alcohol mg/dL < 3.0 COVID-19 Eval Order SARS-CoV-2 (PCR) 05/12/21 05/12/21 05/12/21 17:37 18:26 18:26 WBC RBC Hgb Hct MCV MCH MCHC RDW Std Deviation RDW Coeff of Shukri Plt Count MPV Immature Gran % (Auto) Neut % (Auto) Lymph % (Auto) [place] % (Auto) Eos % (Auto) Baso % (Auto) Neut # (Auto) Lymph # (Auto) [place] # (Auto) Eos # (Auto) Baso # (Auto) Immature Gran # (Auto) Sodium Potassium Chloride Carbon Dioxide Anion Gap BUN Creatinine Est Cr Clr Drug Dosing Est GFR ( Amer) Est GFR (Non-Af Amer) BUN/Creatinine Ratio Glucose Calcium Total Bilirubin AST ALT Alkaline Phosphatase Total Protein Albumin Globulin Albumin/Globulin Ratio TSH Urine Color Yellow Urine Appearance Clear Urine pH 6.5 Ur Specific [place] 1.009 Urine Protein Negative Urine Glucose (UA) Negative Urine Ketones 1+ H Urine Blood Trace H Urine Nitrite Negative Urine Bilirubin Negative Urine Urobilinogen Negative Ur Leukocyte Esterase Negative Urine WBC (Auto) 1-5 Urine RBC (Auto) 0-4 U Hyaline Cast (Auto) 0 U Epithel Cells (Auto) >30 H Urine Bacteria (Auto) Negative Urine Test Negative Salicylates Urine Opiates Screen U Codeine Confrm GC/MS Ur Morphine (GC/MS) Ur Hydrocodone (GC/MS) Ur Norhydrocodone Ur Noroxycodone Urine Oxycodone (GC/MS) U Oxymorphone GC/MS Ur Methadone, Qual Ur Hydromorphone (GC/MS) Acetaminophen < 2 L Urine Barbiturates Ur Phencyclidine (PCP) U Amphetamin/Meth Scrn MDMA (Ecstasy) Screen U OH-Alprazolam Confrm U Benzodiazepines Scrn 7-Amino Clonazepam Ur Nordiazepam Confirm U OH-ethylflurazepam U Lorazepam Cnf GC/MS U Oxazepam Confm GC/MS Ur Temazepam Confirm U OH-Triazolam Confirm U OH-Midazolam Confirm Ur Cocaine Metabolite U Marijuana (THC) Screen Drug Screen Comment Ethyl Alcohol mg/dL COVID-19 Eval Order SARS-CoV-2 (PCR) 05/12/21 05/12/21 18:26 18:26 WBC RBC Hgb Hct MCV MCH MCHC RDW Std Deviation RDW Coeff of Shukri Plt Count MPV Immature Gran % (Auto) Neut % (Auto) Lymph % (Auto) [place] % (Auto) Eos % (Auto) Baso % (Auto) Neut # (Auto) Lymph # (Auto) [place] # (Auto) Eos # (Auto) Baso # (Auto) Immature Gran # (Auto) Sodium Potassium Chloride Carbon Dioxide Anion Gap BUN Creatinine Est Cr Clr Drug Dosing Est GFR ( Amer) Est GFR (Non-Af Amer) BUN/Creatinine Ratio Glucose Calcium Total Bilirubin AST ALT Alkaline Phosphatase Total Protein Albumin Globulin Albumin/Globulin Ratio TSH Urine Color Urine Appearance Urine pH Ur Specific [place] Urine Protein Urine Glucose (UA) Urine Ketones Urine Blood Urine Nitrite Urine Bilirubin Urine Urobilinogen Ur Leukocyte Esterase Urine WBC (Auto) Urine RBC (Auto) U Hyaline Cast (Auto) U Epithel Cells (Auto) Urine Bacteria (Auto) Urine Test Salicylates Urine Opiates Screen Pos H U Codeine Confrm GC/MS NEGATIVE Ur Morphine (GC/MS) NEGATIVE Ur Hydrocodone (GC/MS) NEGATIVE Ur Norhydrocodone NEGATIVE Ur Noroxycodone NEGATIVE Urine Oxycodone (GC/MS) NEGATIVE U Oxymorphone GC/MS NEGATIVE Ur Methadone, Qual Neg Ur Hydromorphone (GC/MS) 5570 H Acetaminophen Urine Barbiturates Neg Ur Phencyclidine (PCP) Neg U Amphetamin/Meth Scrn Neg MDMA (Ecstasy) Screen Neg U OH-Alprazolam Confrm NEGATIVE U Benzodiazepines Scrn Pos H 7-Amino Clonazepam NEGATIVE Ur Nordiazepam Confirm 382 H U OH-ethylflurazepam NEGATIVE U Lorazepam Cnf GC/MS 247 H U Oxazepam Confm GC/MS NEGATIVE Ur Temazepam Confirm 222 H U OH-Triazolam Confirm NEGATIVE U OH-Midazolam Confirm NEGATIVE Ur Cocaine Metabolite Neg U Marijuana (THC) Screen Neg Drug Screen Comment SEE NOTE Ethyl Alcohol mg/dL COVID-19 Eval Order SARS-CoV-2 (PCR) Hospital Course (1) Bipolar II disorder with seasonal pattern: 05/15/21: continue current medication and treatment plan 05/14/21: restart Lamictal 05/13/21: The patient [facility] on q15 min checks (behavioral with suicide precautions) for safety. The patient will participate in group, recreational, and milieu therapies and will be offered additional individual and family sessions as clinically appropriate. Risks/benefits/alternatives were reviewed re: retrial of Lamictal, discussion included but was not limited to risks for Douglas Montoya urmila. She desires additional time to consider. Mental Health & Subst Abuse Tx Psychiatrist Name of Psychiatrist: Vivek Gant Psychiatrist's Time of Appointment with Psychiatrist: Follow up Psychiatric Appointment Comment: [phone] [facility] Therapist Name of Therapist: [facility] Therapist's Therapy Appointment Comment: [address] [id number] Therapist Release of Information: Signed Post Discharge Appointments Primary Care Physician Name Of Family Doctor: Dr. Ramos Primary Care Date of Appointment with PCP: 06/04/21 Time of Appointment with PCP: 1:30pm Provider Appointment Comment: Previously scheduled appointment; pap & post hospital appt. Primary Care Release of Information: Obtained Smoking Cessation Counseling Tobacco Cessation Medication Prescribed at Discharge: Not Applicable/Non-Smoker Contact Information Discharge Discharge [address]: [address] [place] [id number] Discharge Plan Discharge Items Patient Disposition: Home - Self-Care Reason For Visit: MDD Discharge Diagnosis: bipolar II disorder Activity: Resume your previous activity Non-emergency contact: Primary Care Provider, Psychiatrist and Therapist Call non-emergency contact if: you have any medication questions and your symptoms worsen Follow-up/Referrals: Shamir Morgan MD [Primary Care Provider] - Diet: Regular Addtl Attending Provider Instructions: SPECIAL CARE INSTRUCTIONS: 1. Follow through with your scheduled aftercare appointments. If unable to keep an appointment, please call to reschedule. 2. Take your medication only as prescribed. Medication should not be changed or stopped without the approval of your doctor. In the event of worsening symptoms or concerns about side effects, contact your doctor immediately. 3. Utilize new healthy coping skills, anger management skills, and stress management skills learned during your hospitalization. Journal feelings and process them with a support person. Identify stressors or situations that may result in relapse, deterioration or inappropriate behaviors and develop a plan to deal with those issues. 4. If your coping skills are ineffective and you are in crisis, contact your outpatient providers for direction. If unable to reach your providers, please call the [facility] CRISIS LINE AT , go to the [facility] walk-in center at [address] [place] [address] A, [place], or go to the closest Emergency Room. 5. Avoid alcohol and un-prescribed drugs. 6. You have been provided with the Mental Health Advance Directives Pamphlet for your review. 7. Your condition is stable for discharge to outpatient level of care, but recovery is an ongoing process. Ifthoughts to harm yourself or others return, follow the safety plan developed during your stay. Planning for a safe return home includes securing weapons. Our treatment team recommends weaponsbe removed from the home until your outpatient provider reassesses your progress. In rare cases where the items themselvescannot be removed, guns and ammunitionshould be secured separatelyand keys stored by a reliable personoutside of the home. If you were admitted on an involuntary commitment, the police or other legal authorities may be involved in this process. AFTERCARE APPOINTMENTS: * Please call your insurance company prior to your scheduled appointment to confirm your aftercare providers are covered. Take your insurance information to your appointments. WHO TO CALL AND WHEN: Medical Emergencies: For questions or emergencies related to your hospital stay, please contact the Inpatient Behavioral Health Unit at [phone]. A sales floor team leader is on-call 21/03 for the Behavioral Health Unit for emergencies At any time you feel your situation is an emergency, you may also call 911 immediately. Pending Studies at Discharge: No Stand-Alone Forms: My [facility], Smoking Cessation Medications and DC Order Prescriptions: New lamotrigine [Lamictal] 25 mg Tablet 25 mg PO QAM 30 Days Qty: 30 RF: 0 lorazepam [Ativan] 0.5 mg tablet 0.5 mg PO DAILY PRN (Reason: panic) Qty: 10 RF: 0 Continued bromocriptine 2.5 mg tablet 2.5 mg PO HS RF: 0 Discontinued lamotrigine 100 mg tablet 200 mg PO HS RF: 0 Discharge Orders: Discharge Order (Routine); Ordered 05/16/21 Ordered By: Yolanda Pena Admission Data Admit Date/Time: 05/12/21 21:29 Attending Provider: Yolanda Pena Admit Provider: Yolanda Pena Primary Care Provider: Shamir Morgan Other Interventions: Discharge Summary Assessment (RN) Last Done: 05/16/21 10:45 PSY Interdisciplinary Discharge Planning Last Done: 05/16/21 10:45 Coding Level of Care Code 01825 D/C day mgmt > 30 min Diagnoses Bipolar II disorder with seasonal pattern F31.81
[2021-05-16] MEDS ORDERED: DESTROY THIS MEDICATION ONE (09:56)
== END 2021-05-16 11:20 | disposition home or self-care (01) | DRG 885 ==
LOC: ED 14:26 → 3S 21:29